=== PATIENT | male | born 2000 | race Caucasian/White ===

== ENCOUNTER 2021-01-02 15:09 | Emergency (ER) | payer OTHER ==
[~2021-01-02] VITALS: Ht 182.9 cm; Wt 158.8 kg
[2021-01-02] MEDS ORDERED: CLONIDINE HCL0.2 MG PO (15:21)
== END 2021-01-02 17:37 | disposition home or self-care (01) ==
LOC: ED 15:09
DX: J02.9 Acute pharyngitis, unspecified (principal); Z20.822 Contact with and (suspected) exposure to COVID-19; I10 Essential (primary) hypertension; E66.9 Obesity, unspecified; Z79.899 Other long term (current) drug therapy
CPT/HCPCS: 87880; 99283; C9803; U0003

== ENCOUNTER → 2022-01-27 | Emergency (ER) | payer OTHER ==
[~2022-01-27] VITALS: Ht 182.9 cm; Wt 157.9 kg
[~2022-01-27] MED LIST: ATORVASTATIN CA40 MG PO; CLONIDINE HCL0.2 MG PO; GUANFACINE HCL1 MG PO; MELATONIN5 M1 SL; PRAZOSIN HCL2 MG PO; VENLAFAXINE H37.5 M1 PO; VITAMIN D21250 MCG PO
--- NOTE | 2022-01-29 09:35 | EKG ---
[facility] [address] [place], [place] [address] Signed Normal sinus rhythm Normal ECG No previous ECGs available Confirmed by GONSALO GARSIA MD ([id number] on 01/29/2022 9:35:11 AM Electronically Signed By: GONSALO GARSIA MD 01/29/22 0935 PATIENT NAME: CHITO MARRUFO Electrocardiogram DATE OF : [birth year] PHYSICIAN: GONSALO GARSIA MD REPORT #: [id number] REPORT IS CONFIDENTIAL AND NOT TO BE RELEASED WITHOUT AUTHORIZATION
== END ==
LOC: ED 21:40
DX: R45.851 Suicidal ideations (principal); I10 Essential (primary) hypertension; E66.9 Obesity, unspecified; E11.9 Type 2 diabetes mellitus without complications; Z79.899 Other long term (current) drug therapy; Z20.822 Contact with and (suspected) exposure to COVID-19
CPT/HCPCS: 36415; 80053; 81001; 84443; 85025; 93005; 93010; 99285-25; C9803; G0480; U0003

== ENCOUNTER 2022-10-26 15:39 | Emergency (ER) | payer OTHER ==
[~2022-10-26] VITALS: Ht 182.9 cm; Wt 157.8 kg
[2022-10-26] MEDS ORDERED: ARIPIPRAZOLE5 MG PO (16:29)
[2022-10-26] MEDS ORDERED: HYDROXYZINE HCL50 MG PO (16:29)
== END 2022-10-26 17:14 | disposition home or self-care (01) ==
LOC: ED 15:39
DX: K59.00 Constipation, unspecified (principal); R74.8 Abnormal levels of other serum enzymes; I10 Essential (primary) hypertension; E11.9 Type 2 diabetes mellitus without complications; Z79.899 Other long term (current) drug therapy
CPT/HCPCS: 36415; 74018; 80053; 83690; 85025; 99284-25

== ENCOUNTER 2022-12-26 13:54 | Emergency (ER) | payer OTHER ==
[~2022-12-26] VITALS: Ht 182.9 cm; Wt 150.7 kg
[~2022-12-26 13:54] MED LIST changes: +ARIPIPRAZOLE5 MG PO; +HYDROXYZINE HCL50 MG PO
== END 2022-12-26 19:00 | disposition home or self-care (01) ==
LOC: ED 13:54
DX: J02.9 Acute pharyngitis, unspecified (principal); I10 Essential (primary) hypertension; Z79.899 Other long term (current) drug therapy
CPT/HCPCS: 36415; 80053; 85025; 87880; 96374; 96375; 99283-25; A9270; J1100; J1885; J7030